=== PATIENT | male | born 1965 | race Caucasian/White ===

== ENCOUNTER 2023-06-11 01:34 | Emergency (ER) | payer SELFPAY ==
[2023-06-11] MEDS ORDERED: INFANRIX 0.5 ML (DTaP) SYRINGE (PEDI) ONE (02:04)
[2023-06-11] MEDS ORDERED: Bupivacaine 0.5% 10 ML VIAL ONE ×4 (02:13→03:38)
[2023-06-11] MEDS ORDERED: Lidocaine 1% (PF) 30 ML VIAL ONE (02:14)
[2023-06-11] MEDS ORDERED: Triple Antibiotic Oint 1 GM Packet ONE (05:10)
== END 2023-06-11 05:18 | disposition home or self-care (01) ==
LOC: BURERS 01:34
DX: S91.311A Laceration without foreign body, right foot, initial encounter (principal); S91.011A Laceration without foreign body, right ankle, initial encounter; Z23 Encounter for immunization; W25.XXXA Contact with sharp glass, initial encounter
CPT/HCPCS: 12002; 12034; 90471; 90702; J2001; J3490